=== PATIENT | male | born 1985 | race African-American/Black ===

== ENCOUNTER 2023-07-10 21:06 | Emergency (ER) | payer MEDICAID ==
[~2023-07-10] VITALS: Ht 182.9 cm; Wt 60.0 kg
[2023-07-10 21:26] VITALS: BP 123/73; PULSE 106; RESP 16; TEMP 98
== END 2023-07-10 22:59 | disposition left against medical advice (07) ==
LOC: EMS 21:06
DX: R00.2 Palpitations (principal); Z53.21 Procedure and treatment not carried out due to patient leaving prior to being seen by health care provider
CPT/HCPCS: 93005; 99281; Z7502